=== PATIENT | male | born 1955 | race African-American/Black ===

== ENCOUNTER 2016-11-29 14:09 | Emergency (ER) | payer MEDICARE, OTHER ==
[~2016-11-29 14:09] MED LIST: ATARAX50B PO; CAT1 PO; CLARIT10 PO; CLOBETASOL0.05 % EX; FERRETTS325 MG PO; FLAG500TAB PO; HALF81 PO; HYDROCHLOROT25 MG PO; LEVAQUIN750 MG PO; LEVEMIR SC; NORV10 PO; NOVOLOG SC; OTC EYE DROP OPH; PAXIL30 MG PO; PEP20 PO; PR25 PO; REG5 PO; SILVADENE1 % TOP; TRADJENTA5 MG PO; TRIAMCINOLON0.5 % TOP; ULTRAM50 PO; VOLT75 PO
[2016-11-29 14:54] LABS: ASCORBIC ACID (UR NOT ORDER) NEG (NEG); BILIRUBIN, URINE NEGATIVE (NEG); ER URINALYSIS TAT 0 Hrs 11 Mins; KETONE, URINE NEGATIVE (NEG); LEUKOCYTE ESTERASE(NOT OR MOD (NEG); NITRITE (URINE) NEG (NEG); WBC (NOT ORDERED) (RFLEX) 10 (0-5)
[2016-11-29 14:56] LABS: BASOPHILS 0.2 %; BASOPHILS ABSOLUTE 0.03 10/3/uL (0.0-0.16); EOSINOPHILS 1.1 %; HEMATOCRIT 42.8 % (40.0-51.0); HEMOGLOBIN 14.5 g/dL (13.6-17.8); IMMATURE GRANULOCYTES 0.3 %; IMMATURE GRANULOCYTES ABSOLUTE 0.06 10/3/uL (0.0-0.11); LYMPHOCYTES 12.5 %; LYMPHOCYTES ABSOLUTE 2.18 10/3/uL (0.67-4.30); MANUAL DIFF NO %; MEAN CORPUS HGB CONC 33.9 g/dL (32.0-36.0); MEAN CORPUSCULAR HEMOGLOB 26.6 pg (26.0-34.0); MEAN CORPUSCULAR VOLUME 78.4 fL (80-100); MEAN PLATELET VOLUME 9.7 fL (9.2-13.0); MONOCYTES 6.1 %; MONOCYTES ABSOLUTE 1.07 10/3/uL (0.21-1.20); NEUTROPHILS 79.8 %; NEUTROPHILS ABSOLUTE 13.91 10/3/uL (2.02-8.40); PLATELET COUNT 218 10/3/uL (150-400); RBC DISTRIBUTION WIDTH 13.5 % (12.0-16.0); RED CELL COUNT 5.46 10/6/uL (4.7-6.1); WHITE BLOOD CELLS 17.5 10/3/uL (4.5-10.5)
[2016-11-29 15:12] LABS: A/G RATIO 0.8 (0.7-1.9); ALBUMIN 3.3 G/DL (3.5-5.0); ALKALINE PHOSPHATASE 102 U/L (45-117); BUN (BLOOD UREA NITROGEN) 11 MG/DL (6-23); CALCIUM, SERUM 9.3 MG/DL (8.5-10.4); CHLORIDE, SERUM 100 MMOL/L (96-112); CO2 (CARBON DIOXIDE) 28 MMOL/L (24-34); CREATININE 1.11 MG/DL (0.70-1.30); GFR AFRICAN AMERICAN 84 ML/MIN (>=60); GFR NON AFRICAN AMERICAN 72 ML/MIN (>=60); GLOBULIN 4.4 G/DL (2.5-4.1); GLUCOSE, SERUM 209 MG/DL (60-99); POTASSIUM, SERUM 3.4 MMOL/L (3.5-5.3); SGOT(AST) 15 U/L (5-40); SGPT(ALT) 31 U/L (5-65); SODIUM, SERUM 135 MMOL/L (135-148); TOTAL BILIRUBIN 0.5 MG/DL (0-1.2); TOTAL PROTEIN 7.7 G/DL (6.0-8.5)
== END 2016-11-29 16:04 | disposition home or self-care (01) ==
LOC: ER 14:09
PROVIDERS: Nurse Practitioner Acute Care
DX: N39.0 Urinary tract infection, site not specified (principal); D72.829 Elevated white blood cell count, unspecified; R10.84 Generalized abdominal pain; I10 Essential (primary) hypertension; F32.9 Major depressive disorder, single episode, unspecified; E11.9 Type 2 diabetes mellitus without complications; F17.200 Nicotine dependence, unspecified, uncomplicated; Z88.8 Allergy status to other drugs, medicaments and biological substances; Z79.82 Long term (current) use of aspirin; Z79.4 Long term (current) use of insulin; Z79.899 Other long term (current) drug therapy
CPT/HCPCS: 74176; 80053; 81001; 83690; 85025; 87086; 99285